=== PATIENT | male | born 1980 | race Caucasian/White ===

== ENCOUNTER 2019-11-05 15:00 | Emergency (ER) | payer MEDICAID, OTHER ==
[~2019-11-05] VITALS: Ht 188 cm; Wt 99.0 kg
[2019-11-05] MEDS ORDERED: pantoprazole 40mg Tablet.DR PO STA (15:24)
[2019-11-05] MEDS ORDERED: sucralfate 1gm/10ml UD suspension PO STA (15:24)
[2019-11-05 15:32] LABS: BASOPHILS # (AUTO) 0.1 X10'3 (0-0.2); BASOPHILS % (AUTO) 0.7 % (0-1); EOSINOPHILS # (AUTO) 0.6 X10'3 (0-0.9); EOSINOPHILS % (AUTO) 4.4 % (0-6); HEMATOCRIT 49.9 % (42.0-52.0); HEMOGLOBIN 17.2 g/dl (14.0-17.9); LYMPHOCYTES # (AUTO) 3.2 X10'3 (1.1-4.8); MEAN CORPUSCULAR HEMOGLOBIN 31.3 PG (27.0-31.0); MEAN CORPUSCULAR HGB CONC 34.6 g/dL (33.0-36.5); MEAN CORPUSCULAR VOLUME 90.6 FL (78-98); MEAN PLATELET VOLUME 7.4 FL (7.4-10.4); MONOCYTES # (AUTO) 1.4 X10'3 (0-0.9); NEUTROPHILS # (AUTO) 8.2 X10'3 (1.8-7.7); NEUTROPHILS % (AUTO) 60.9 % (42-75); PLATELET COUNT 407 X10'3 (140-440); RED CELL DISTRIBUTION WIDTH 12.4 % (11.5-14.5); WHITE BLOOD COUNT 13.5 X10'3 (4.5-11.0)
[2019-11-05 15:47] LABS: ALANINE AMINOTRANSFERASE 75 U/L (12-78); ALBUMIN 3.9 G/DL (3.4-5.0); ALBUMIN/GLOBULIN RATIO 0.9 (1.1-1.5); ALKALINE PHOSPHATASE 100 IU/L (46-116); ANION GAP 10 (8-16); ASPARTATE AMINO TRANSFERASE 25 U/L (10-37); BILIRUBIN,TOTAL 0.3 MG/DL (0.1-1.0); BLOOD UREA NITROGEN 14 MG/DL (7-18); BUN/CREATININE RATIO 10.5 (5.4-32.0); CALCIUM 9.2 MG/DL (8.5-10.1); CHLORIDE 100 MMOL/L (99-107); CREATININE 1.33 MG/DL (0.60-1.10); GLUCOSE 157 MG/DL (70-104); LIPASE 137 U/L (73-393); SODIUM 138 MMOL/L (135-145); TOTAL CARBON DIOXIDE 28.3 MMOL/L (24-32); TOTAL PROTEIN 8.1 G/DL (6.4-8.2); eGFR 61 ML/MIN
[2019-11-05 16:41] LABS: CLARITY,URINE SLIGHTLY CLOUDY (Clear); COLOR,URINE YELLOW (Yellow); GLUCOSE, URINE NEGATIVE (Neg); KETONES,URINE NEGATIVE (Neg); LEUKOCYTE ESTERASE ,URINE NEGATIVE (Neg); NITRITES, URINE NEGATIVE (Neg); OCCULT BLOOD,URINE LARGE (Neg); PH,URINE 5.5 (4.8-8.0); PROTEIN,URINE TRACE mg/dl (Neg); UROBILINOGEN,URINE 0.2 E.U/dL (0.2-1.0)
[2019-11-05 16:44] LABS: UA COLLECTION TYPE CLN CATCH MIDSTREAM
[2019-11-05] MEDS ORDERED: PANT40TA4 PO (16:46)
[2019-11-05] MEDS ORDERED: SUCR1ORA12 PO (16:46)
[2019-11-05 16:47] LABS: BACTERIA,URINE FEW /HPF (Neg); COARSE GRANULAR CAST 0-3 /LPF (NEGATIVE); HYALINE CASTS 0-3 /LPF (NEGATIVE); MUCUS STRANDS FEW /LPF (Neg); RBC,URINE 50-100 /HPF (0-2); SQUAMOUS EPITHELIAL CELL,UR FEW /LPF (FEW); WBC CLUMPS,URINE FEW /HPF (NEGATIVE)
[2019-11-05] MEDS ORDERED: DOXY100C76 PO (16:50)
[2019-11-05] MEDS ORDERED: CefTRIAXone 2gm/D5W 50ml 50 ML IV ONE (17:05)
[2019-11-05] MEDS ORDERED: CefTRIAXone inj 2,000 MG in normal saline 100ml IV soln 50 ML IV ONE (17:10)
[2019-11-05] MEDS ORDERED: CefTRIAXone inj 2,000 MG in normal saline 100ml IV soln 100 ML IV ONE (17:20)
[2019-11-05] MEDS ORDERED: HYDR-3965 PO (17:33)
[2019-11-05] MEDS ORDERED: CEPH500C5 PO (17:33)
[2019-11-05] MEDS ORDERED: ONDA4TAB12 PO (17:33)
[2019-11-05] MEDS ORDERED: FLO0.4C PO (17:33)
[2019-11-05 18:23] VITALS: BP 133/96
== END 2019-11-05 18:32 | disposition home or self-care (01) ==
LOC: ER 15:02
DX: N13.2 Hydronephrosis with renal and ureteral calculous obstruction (principal); N30.01 Acute cystitis with hematuria; R10.13 Epigastric pain; R10.11 Right upper quadrant pain; R11.0 Nausea; Z72.89 Other problems related to lifestyle; Z79.2 Long term (current) use of antibiotics; Z79.899 Other long term (current) drug therapy
CPT/HCPCS: 36415; 74018; 74176; 76700; 80053; 81001; 83690; 85025; 87088; 96365; 99285; J0696

== ENCOUNTER 2021-05-21 00:19 | Emergency (ER) | payer MEDICAID ==
[~2021-05-21] VITALS: Ht 188 cm; Wt 100.0 kg
[~2021-05-21 00:19] MED LIST: ONDA4TAB12 PO; PANT40TA54 PO; SUCR1ORA12 PO
[2021-05-21 00:38] VITALS: BP 126/75
== END 2021-05-21 03:50 | disposition left against medical advice (07) ==
LOC: ER 00:19
DX: M79.604 Pain in right leg (principal); Z53.21 Procedure and treatment not carried out due to patient leaving prior to being seen by health care provider